=== PATIENT | male | born 1970 | race Two or more races ===

== ENCOUNTER 2025-08-03 18:59 | Emergency (ER) | payer SELFPAY ==
[~2025-08-03] VITALS: Ht 170.2 cm; Wt 87.4 kg
--- NOTE | 2025-08-03 20:52 | ED.PDOC ---
History of Present Illness(SKN HPI Comments 55-year-old male that presents to the ED if she couple of animal bite. Patient states that he was bit by a dog on the right side of cheek. Patient in the ED now has noted a laceration to the right side of the throat we did approximate 2 cm in size with noted bleeding controlled. Patient otherwise has stable vitals. Patient denies any associated fever shortness of breath or any associated symptoms. Patient otherwise states he is not up to date on tetanus. Patient denies any other symptoms at this time. Chief Complaint: Animal Bite Time Seen by MD: 20:50 History of Present Illness: Medications, Allergies Allergies: Coded Allergies: NO KNOWN ALLERGIES (Unverified , 08/03/25) Information Source: Patient Mode of Arrival: Ambulatory Past Medical History PAST MEDICAL HISTORY: Denies Surgical History: Denies all surgeries Family History Family History: Reviewed,noncontributory to illness Social History Smoker: Non-Smoker Alcohol: Denies ETOH Use Drugs: Denies Drug Use Lives In: Home Constitutional: denies: chills, diaphoresis, fatigue, fever, malaise, sweats, weakness, others EENTM: denies: blurred vision, double vision, ear bleeding, ear discharge, ear drainage, ear pain, ear ringing, eye pain, eye redness, hearing loss, mouth pain, mouth swelling, nasal discharge, nose bleeding, nose congestion, nose pain, photophobia, tearing, throat pain, throat swelling, voice changes, others Respiratory: denies: cough, hemoptysis, orthopnea, SOB at rest, shortness of breath, SOB with excertion, stridor, wheezing, others Cardiovascular: denies: chest pain, dizzy spells, diaphoresis, Dyspnea on exertion, edema, irregular heart beat, left arm pain, lightheadedness, palpitations, PND, syncope, others Gastrointestinal: denies: abdomen distended, abdominal pain, blood streaked bowels, constipated, diarrhea, dysphagia, difficulty swallowing, hematemesis, melena, nausea, poor appetite, poor fluid intake, rectal bleeding, rectal pain, vomiting, others Genitourinary: denies: burning, dysuria, flank pain, frequency, hematuria, incontinence, penile discharge, penile sore, pain, testicle pain, testicle swelling, urgency, others Neurological: denies: dizziness, fainting, headache, left sided numbness, left sided weakness, numbness, paresthesia, pre-existing deficit, right sided numbness, right sided weakness, seizure, speech problems, tingling, tremors, w eakness, others Musculoskeletal: denies: back pain, gout, joint pain, joint swelling, muscle pain, muscle stiffness, neck pain, others Integumetry: reports: laceration (Right side of neck and posterior ear); denies: bruises, change in color, change in hair/nails, dryness, lesions, lumps, rash, wounds, others Allergic/Immunocompromised: denies: Difficulty Healing, Frequent Infections, Hives, Itching, others Hematologic/Lymphatic: denies: anemia, blood clots, easy bleeding, easy bruising, swollen glands, others Endocrine: denies: excessive hunger, excessive sweating, excessive thirst, excessive urination, flushing, intolerance to cold, intolerance to heat, unexplained weight gain, unexplained weight loss, others Psychiatric: denies: anxiety, bipolar disorder, depression, hopeless, panic disorder, schizophrenia, sleepless, suicidal, others All Other Systems: Reviewed and Negative Physical Exam General Appearance: No Apparent Distress, Normal HEENT: Normal ENT Inspection, Pharynx Normal, TMs Normal Neck: Full Range of Motion, Non-Tender, Normal, Normal Inspection Respiratory: Chest Non-Tender, Lungs Clear, No Accessory Muscle Use, No Respiratory Distress, Normal Breath Sounds Cardiovascular: No Edema, No JVD, No Murmur, No Gallop, Normal Peripheral Pulses, Regular Rate/Rhythm Breast Exam: Deferred Gastrointestinal: No Organomegaly, Non Tender, No Pulsatile Mass, Normal Bowel Sounds, Soft Genitalia: Deferred Pelvic: Deferred Rectal: Deferred Extremities: No calf tenderness, Normal capillary refill, Normal inspection, Normal range of motion, Non-tender, No pedal edema Musculoskeletal : Apperance: Normal Neurologic: Alert, 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 Was a procedure done?: No Differential Diagnosis (INTG) Differential Diagnosis: Puncture Wound, Other (Dog bite, laceration, abrasion) Abscess: Abscess, Bacteremia, Cellulitis X-Ray, Labs, Meds, VS Vital Signs Date Time Temp Pulse Resp B/P (MAP) Pulse Ox O2 Delivery O2 Flow Rate FiO2 08/03/25 19:01 98.0 76 16 154/97 98 98.0 Current Medications Medications (Trade) Dose Ordered Sig/Mary Route Start Time Stop Time Status Last Admin Diphtheria/ Tetanus/Acell Pertussis (Boostrix T-Dap) 0.5 ml ONCE ONCE IM 08/03/25 20:45 08/03/25 20:46 DC 08/03/25 21:00 Bacitracin 1 applic ONCE ONCE TOP 08/03/25 20:45 08/03/25 20:46 DC 08/03/25 21:00 X-Ray, Labs, Meds, VS Comment Splints with normal saline. Wounds dressed with triple antibiotic ointment and nonstick dressing. Advised to wash wounds daily. Time of 1ST Reevaluation: 21:20 Reevaluation 1ST: Unchanged Patient Education/Counseling: Diagnosis, Treatment, Need For Follow Up (Follow up recheck in two days. Return to emergency department if symptoms worsen. Follow up with PCP next available appointment) Family Education/Counseling: No Family Present SEPSIS Sepsis Screen Date sepsis recognized/suspect: Aug 03, 2025 Time Sepsis recognized/suspect: 1900 Recent Procedure: No On Antibiotic Therapy: No Respiratory Rate >20: No Heart Rate >90: No Temp<36 C (96.8 F) or >38.3 C: No SBP <90 or MAP <65 mmHG: No New Acute Mental Status Change: No Is the patient on CPAP, BIPAP,: No Vital Signs Date Time Temp Pulse Resp B/P (MAP) Pulse Ox O2 Delivery O2 Flow Rate FiO2 08/03/25 19:01 98.0 76 16 154/97 98 98.0 Medications Medications Dose Ordered Sig/Mary Route Start Time Stop Time Status Last Admin Dose Admin Bacitracin 1 applic ONCE ONCE TOP 08/03/25 20:45 08/03/25 20:46 DC 08/03/25 21:00 Diphtheria/ Tetanus/Acell Pertussis 0.5 ml ONCE ONCE IM 08/03/25 20:45 08/03/25 20:46 DC 08/03/25 21:00 Departure 1 Departure Time of Disposition: 21:24 Impression: Primary Impression: Animal bite Disposition: HOME / SELF CARE / HOMELESS Condition: Fair e-Prescriptions Ibuprofen Micronized (Ibuprofen) 800 Mg Tab 800 MG PO TID PRN, #30 TAB Prov: KRISTIAN JACKMAN 08/03/25 Amoxicillin & Pot Clavulanate (AUGMENTIN TABLET) 875 Mg Tb 875 MG PO BID for 10 Days, #20 TAB Prov: KRISTIAN JACKMAN 08/03/25 Discharged With: Self Critical Care Note Critical Care Time?: No Stability Stability form required: No Heart Score Heart Score: Heart Score Response (Comments) Value History N/A 0 EKG N/A 0 Age N/A 0 Risk Factors N/A 0 Troponin N/A 0 Total 0 I personally scribed for KRISTIAN JACKMAN ([email or web address]) on 08/03/25 at 20:52. Electronically submitted by Adelaida MARTINEZ). KRISTIAN JACKMAN Aug 03, 2025 20:52
[2025-08-03] MEDS: TETANUS-DIPTH-ACEL PERTUSSIS 0.5ML SYR Tdap IM ONE (21:00)
[2025-08-03] MEDS: BACITRACIN TOP OINT 1 UD PKG TOP ONE (21:00)
[2025-08-03] MEDS ORDERED: AUG875T PO (21:25)
[2025-08-03] MEDS ORDERED: IBUP-1455 PO (21:25)
[2025-08-03 21:37] VITALS: BP 163/92; PULSE 70; RESP 16; TEMP 98.3; O2SAT 98
== END 2025-08-03 21:53 | disposition home or self-care (01) ==
LOC: ER 18:59
DX: S11.83XA Puncture wound without foreign body of other specified part of neck, initial encounter (principal); W54.0XXA Bitten by dog, initial encounter; Y93.89 Activity, other specified; Y92.89 Other specified places as the place of occurrence of the external cause; Y99.8 Other external cause status
CPT/HCPCS: 90471; 90715